=== PATIENT | female | born 1990 | race African-American/Black ===

== ENCOUNTER 2016-09-06 19:18 | Emergency (ER) | payer OTHER ==
[~2016-09-06] VITALS: Ht 180.3 cm; Wt 126.1 kg
[~2016-09-06 19:18] MED LIST: CIPRO500 MG PO; CLONAZEPAM0.5 MG PO; FORTAMET500 M1 PO; GLUCOPHAGE500 MG PO; IBUPROFEN200 M1 PO; IRON325 M1 PO; KLONOPIN0.5 M1 PO; MEGESTROL ACETA40 MG PO; PEPTO BISMOL262 MG PO; REGLAN10 MG PO; TOPAMAX50 MG PO; ZOFRAN4 MG PO; ZOFRAN8 MG PO
[2016-09-06] MEDS ORDERED: PANTOPRAZOLE SO40 MG PO (19:39)
[2016-09-06] MEDS ORDERED: METOCLOPRAMIDE10 MG PO (19:39)
[2016-09-06] MEDS ORDERED: ENDOCET 5-3251 EACH PO (19:39)
[2016-09-06 22:05] LABS: HEMATOCRIT 35.8 % (36.0-46.0); MCH 25.9 PG (29.0-34.0); MCHC 33.2 G/DL (30.0-36.0); MCV 77.8 FL (83-99); MEAN PLAT.VOLUME 11.7 uM^3 (9.5-12.4); PLATELET COUNT 204 K/uL (156-360); RBC DIS.WIDTH-CV 17.7 % (11.8-14.6); WHITE BLOOD COUNT 7.6 K/uL (4.1-10.2)
[2016-09-06 22:15] LABS: CHLORIDE 101 mEq/L (99-109); POTASSIUM 3.1 mEq/L (3.7-5.4); SODIUM 140 mEq/L (136-147)
[2016-09-06 22:17] LABS: INTER. NORMALIZED RATIO 1.1; PROTHROMBIN TIME 11.7 (9.2-11.2)
[2016-09-06 22:17] LABS: GLUCOSE 72 mg/dL (70-99)
[2016-09-06 22:18] LABS: ANION GAP 14 MEQ/L (2-14)
[2016-09-06 22:20] LABS: GFR ESTIMATE (CALCULATED) > 59 mL/min/
[2016-09-06 22:21] LABS: UREA NITROGEN (BUN) 9 mg/dL (9-23)
[2016-09-06] MEDS ORDERED: XARELTO15 MG PO (23:07)
[2016-09-06 23:20] VITALS: BP 123/86
== END 2016-09-06 23:20 | disposition home or self-care (01) ==
LOC: EME 19:18
PROVIDERS: Physician Assistant
DX: I82.621 Acute embolism and thrombosis of deep veins of right upper extremity (principal); Z98.84 Bariatric surgery status; F17.200 Nicotine dependence, unspecified, uncomplicated
CPT/HCPCS: 80048; 85027; 85610; 93971; 99281; 99284

== ENCOUNTER 2016-09-16 20:26 | Emergency (ER) | payer OTHER ==
[~2016-09-16] VITALS: Ht 175.3 cm; Wt 122.2 kg
[~2016-09-16 20:26] MED LIST changes: +ENDOCET 5-3251 EACH PO; +METOCLOPRAMIDE10 MG PO; +PANTOPRAZOLE SO40 MG PO; +XARELTO15 MG PO
[2016-09-16 20:46] LABS: HEMATOCRIT 36.1 % (36.0-46.0); MCH 25.5 PG (29.0-34.0); MCV 77.5 FL (83-99); MEAN PLAT.VOLUME 12.2 uM^3 (9.5-12.4); PLATELET COUNT 212 K/uL (156-360); RBC DIS.WIDTH-CV 17.6 % (11.8-14.6); RBC DIS.WIDTH-SD 49.3 % (39-53); RED BLOOD COUNT 4.66 M/uL (3.80-5.20); WHITE BLOOD COUNT 8.9 K/uL (4.1-10.2)
[2016-09-16 20:55] LABS: CHLORIDE 103 mEq/L (99-109); SODIUM 144 mEq/L (136-147)
[2016-09-16 20:57] LABS: GLUCOSE 159 mg/dL (70-99)
[2016-09-16 20:59] LABS: ANION GAP 20 MEQ/L (2-14)
[2016-09-16 21:01] LABS: D-DIMER ELISA 0.22 mg/L FEU (< 0.57)
[2016-09-16 21:01] LABS: GFR ESTIMATE (CALCULATED) > 59 mL/min/
[2016-09-16 21:02] LABS: UREA NITROGEN (BUN) 11 mg/dL (9-23)
[2016-09-16 21:06] LABS: TROP-I INTERPRETATION NEGATIVE; TROPONIN-I < 0.01 ng/mL (0.0-0.30)
[2016-09-16] MEDS ORDERED: ZOFRAN4 MG PO (21:32)
[2016-09-16 22:12] LABS: TOTAL BILIRUBIN 0.4 mg/dL (0.0-1.0)
[2016-09-16 22:13] LABS: ALKALINE PHOSPHATASE 58 IU/L (3-129)
[2016-09-16 22:16] LABS: DIRECT BILIRUBIN 0.2 mg/dL (0.0-0.3)
[2016-09-16 22:17] LABS: LIPASE 23 U/L (1.0-51.0)
[2016-09-16 22:31] LABS: TROP-I INTERPRETATION NEGATIVE; TROPONIN-I < 0.01 ng/mL (0.0-0.30)
[2016-09-16 23:35] VITALS: BP 104/59
[2016-09-17] MEDS ORDERED: PROMETHAZINE HC25 M1 PO (22:56)
== END 2016-09-16 23:41 | disposition home or self-care (01) ==
LOC: EME → EDBD 20:26 → EME 20:26
PROVIDERS: Emergency Medicine
DX: R10.84 Generalized abdominal pain (principal); R07.9 Chest pain, unspecified; R11.2 Nausea with vomiting, unspecified; Z86.718 Personal history of other venous thrombosis and embolism; Z98.84 Bariatric surgery status; Z87.891 Personal history of nicotine dependence
CPT/HCPCS: 71020; 74176; 80048; 80076; 83690; 84484; 85027; 85379; 93005; 99281; 99285; J2270; J7030

== ENCOUNTER 2016-09-17 18:46 | Emergency (ER) | payer OTHER ==
[~2016-09-17] VITALS: Ht 175.3 cm; Wt 111.7 kg
[2016-09-17 20:49] LABS: HEMATOCRIT 36.6 % (36.0-46.0); MCH 25.9 PG (29.0-34.0); MCHC 33.3 G/DL (30.0-36.0); MCV 77.7 FL (83-99); MEAN PLAT.VOLUME 12.5 uM^3 (9.5-12.4); PLATELET COUNT 222 K/uL (156-360); RBC DIS.WIDTH-CV 17.6 % (11.8-14.6); RBC DIS.WIDTH-SD 49.4 % (39-53); RED BLOOD COUNT 4.71 M/uL (3.80-5.20); WHITE BLOOD COUNT 10.7 K/uL (4.1-10.2)
[2016-09-17 20:58] LABS: CHLORIDE 101 mEq/L (99-109); SODIUM 139 mEq/L (136-147)
[2016-09-17 21:00] LABS: GLUCOSE 123 mg/dL (70-99)
[2016-09-17 21:01] LABS: ANION GAP 16 MEQ/L (2-14)
[2016-09-17 21:03] LABS: GFR ESTIMATE (CALCULATED) > 59 mL/min/
[2016-09-17 21:04] LABS: UREA NITROGEN (BUN) 5 mg/dL (9-23)
[2016-09-17 21:10] LABS: TROP-I INTERPRETATION NEGATIVE; TROPONIN-I < 0.01 ng/mL (0.0-0.30)
[2016-09-17] MEDS ORDERED: PROMETHAZINE HC25 M1 PO (22:56)
[2016-09-17 23:01] VITALS: BP 99/62
== END 2016-09-17 23:10 | disposition home or self-care (01) ==
LOC: EME 18:46
PROVIDERS: Emergency Medicine
DX: R07.2 Precordial pain (principal); K21.9 Gastro-esophageal reflux disease without esophagitis; F31.9 Bipolar disorder, unspecified; E28.2 Polycystic ovarian syndrome; F41.9 Anxiety disorder, unspecified; Z87.891 Personal history of nicotine dependence; Z98.84 Bariatric surgery status; R11.2 Nausea with vomiting, unspecified
CPT/HCPCS: 71275; 80048; 84484; 85027; 99281; 99285; J2270; J2405; J7030; J7050

== ENCOUNTER 2017-08-27 14:34 | Emergency (ER) | payer OTHER ==
[~2017-08-27] VITALS: Ht 175.3 cm; Wt 79.3 kg
[~2017-08-27 14:34] MED LIST changes: +PROMETHAZINE HC25 M1 PO
[2017-08-27 14:42] VITALS: BP 130/83
== END 2017-08-27 16:28 | disposition home or self-care (01) ==
LOC: EME 14:34
DX: S00.81XA Abrasion of other part of head, initial encounter (principal); S80.12XA Contusion of left lower leg, initial encounter; S40.021A Contusion of right upper arm, initial encounter; Y04.8XXA Assault by other bodily force, initial encounter
CPT/HCPCS: 73080; 73090; 73110; 73502; 99281; 99283